=== PATIENT | female | born 1950 | race Caucasian/White ===

== ENCOUNTER 2017-07-30 12:53 | Outpatient (CLI) | payer MEDICARE, OTHER | END 2017-07-30 12:54 | disposition critical access hospital (66) | LOC: EMS 12:53 | PROVIDERS: ATTEND Surgery | DX: R07.9 Chest pain, unspecified (principal); M54.9 Dorsalgia, unspecified; M25.512 Pain in left shoulder | CPT/HCPCS: A0425; A0427 ==

== ENCOUNTER 2017-07-30 13:18 | Emergency (ER) | payer MEDICARE, OTHER ==
[2017-07-30 13:52] LABS: BASOPHILS # (AUTO) 0.1 10^3/uL (0.0-0.1); BASOPHILS % (AUTO) 1.2 %; EOSINOPHILS # (AUTO) 0.2 10^3/uL (0.0-0.7); EOSINOPHILS % (AUTO) 3.2 %; HGB - HEMOGLOBIN 14.3 g/dL (12.0-16.0); LYMPHOCYTES # (AUTO) 1.7 10^3/uL (1.5-3.5); LYMPHOCYTES % (AUTO) 28.3 %; MEAN CORPUSCULAR HEMOGLOBIN 28.5 pg (27.0-31.0); MEAN CORPUSCULAR HGB CONC 34.5 g/dL (32.0-36.0); MEAN CORPUSCULAR VOLUME 82.5 fL (81.0-99.0); MEAN PLATELET VOLUME 7.7 fL (7.9-10.8); MONOCYTES # (AUTO) 0.4 10^3/uL (0.0-1.0); NEUTROPHILS # (AUTO) 3.6 10^3/uL (1.5-6.6); NEUTROPHILS % (AUTO) 60.3 %; PLT - PLATELET COUNT 256 10^3/uL (130-450); RED BLOOD COUNT 5.02 10^6/uL (4.20-5.40); RED CELL DISTRIBUTION WIDTH 14.4 % (12.0-15.0); WHITE BLOOD COUNT 5.9 x10^3/uL (4.8-10.8)
[2017-07-30 13:57] LABS: ALBUMIN 4.1 g/dL (3.2-5.5); ALBUMIN/GLOBULIN RATIO 1.5 (1.0-2.2); BILIRUBIN,TOTAL 0.9 mg/dL (0.2-1.0); CALCIUM 8.6 mg/dL (8.5-10.3); CREATININE 0.6 mg/dL (0.4-1.0); TOTAL PROTEIN 6.9 g/dL (6.7-8.2)
--- NOTE | 2017-07-30 14:13 | ED Physician Documentation ---
PD HPI CHEST PAIN - Stated complaint Stated Complaint: CP - Chief complaint Chief Complaint: Cardiac - History obtained from History obtained from: Patient, EMS - History of Present Illness Timing - onset: How many days ago (5) Timing - onset during: Light activity Timing - duration: Days (5) Timing - details: Gradual onset, Still present, Waxing and waning Quality: Tightness, Sharp Location: Right jaw, Upper back Radiation: Jaw, Neck, Back Improved by: Nitro Associated symptoms: Diaphoresis, Nausea, Feeling faint / dizzy, General Weakness Similar symptoms before: Diagnosis (angina S/P failed stent and 1 vessle CABG.) Recently seen: Not recently seen - Additional information Additional information: 67-year-old female with a history of coronary artery disease who is status post failed stent and one-vessel CABG has developed symptoms of dizziness lightheadedness left upper back pain right jaw pain over the past 5 days and this has waxed and waned. She took some of her nitro and this did not seem to help much when she took the nitro given to her in the ambulance she had sequential relief of her pain. She has had some diaphoresis, light headedness and shortness of breath for the past 5 days as well. 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 Review of Systems Constitutional: denies: Fever Eyes: denies: Decreased vision Ears: denies: Ear pain Nose: denies: Congestion Throat: denies: Dental pain / toothache, Sore throat Cardiac: reports: Chest pain / pressure. denies: Palpitations, Pedal edema, Calf pain Respiratory: reports: Dyspnea. denies: Cough, Wheezing GI: denies: Abdominal Pain, Nausea, Vomiting : denies: Dysuria, Frequency Skin: denies: Rash Musculoskeletal: reports: Neck pain, Back pain. denies: Extremity pain PD PAST MEDICAL HISTORY - Present Medications Home Medications: Ambulatory Orders Medication Instructions Recorded Confirmed Aspirin 81 mg PO TID 07/30/17 07/30/17 Atorvastatin [Lipitor] 10 mg ORAL TID 07/30/17 07/30/17 Carvedilol 3.125 mg PO 07/30/17 Cholecalciferol (Vitamin D3) 50,000 unit PO 07/30/17 [Vitamin D] Escitalopram [Lexapro] 20 mg PO DAILY 07/30/17 07/30/17 Exenatide Microspheres [Bydureon] 2 mg SQ 07/30/17 Furosemide 40 mg PO TID 07/30/17 07/30/17 Losartan [Cozaar] 50 mg PO DAILY 07/30/17 07/30/17 Mybetrig 25 mg ORAL TID 07/30/17 Nitroglycerin [Nitrostat] 0.4 mg SL Q5MIN PRN 07/30/17 07/30/17 - Allergies Allergies/Adverse Reactions: Allergies Allergy/AdvReac Type Severity Reaction Status Date / Time adhesive Allergy Rash Verified 07/30/17 14:05 morphine Allergy Emesis Verified 07/30/17 13:25 Penicillins Allergy Rash Verified 07/30/17 14:10 PD ED PE NORMAL - Vitals Vital signs reviewed: Yes (hypertensive ) - General General: Alert and oriented X 3, No acute distress, Well developed/nourished - HEENT HEENT: Atraumatic, PERRL, EOMI - Neck Neck: Supple, no meningeal sign, No bony TTP - Cardiac Cardiac: RRR, Other (2/6 holosystolic murmer at LSB) - Respiratory Respiratory: No respiratory distress, Clear bilaterally - Abdomen Abdomen: Soft, Non tender - Back Back: No CVA TTP, No spinal TTP - Derm Derm: Normal color, Warm and dry, No rash - Extremities Extremities: No deformity, No edema - Neuro Neuro: No motor deficit, No sensory deficit Eye Opening: Spontaneous Motor: Obeys Commands Verbal: Oriented GCS Score: 15 - Psych Psych: Normal mood, Normal affect Results - Vitals Vitals: Vital Signs - 24 hr 07/30/17 07/30/17 07/30/17 13:20 14:13 14:38 Temperature 36.7 C Heart Rate 74 72 70 Respiratory 18 18 18 Rate Blood Pressure 194/88 H 164/93 H 148/89 H Blood Pressure 164/93 H [Left] O2 Saturation 96 95 95 07/30/17 07/30/17 07/30/17 15:05 16:37 17:04 Temperature 36.6 C Heart Rate 68 70 75 Respiratory 18 18 13 Rate Blood Pressure 148/73 H 170/79 H 160/92 H Blood Pressure [Left] O2 Saturation 96 96 100 Oxygen O2 Source Room air - EKG (time done) 1326 Rate: Rate (enter#) (72) Rhythm: NSR Ischemia: Non specific changes Other comments: Other comments (early transition. ) Compare to prior EKG: Old EKG unavailable Computer interpretation: Agree with computer - Labs Labs: Laboratory Tests 07/30/17 07/30/17 07/30/17 13:39 13:39 13:39 WBC 5.9 RBC 5.02 Hgb 14.3 Hct 41.4 MCV 82.5 MCH 28.5 MCHC 34.5 RDW 14.4 Plt Count 256 MPV 7.7 L Neut # (Auto) 3.6 Lymph # (Auto) 1.7 Geary # (Auto) 0.4 Eos # (Auto) 0.2 Baso # (Auto) 0.1 Absolute Nucleated RBC 0.00 Nucleated RBC % 0.0 Sodium 136 Potassium 3.9 Chloride 103 Carbon Dioxide 26 Anion Gap 7.0 BUN 17 Creatinine 0.6 Estimated GFR (MDRD) 100 Glucose 147 H Calcium 8.6 Total Bilirubin 0.9 AST 18 ALT 19 Alkaline Phosphatase 72 Troponin I < 0.04 Total Protein 6.9 Albumin 4.1 Globulin 2.8 Albumin/Globulin Ratio 1.5 Lipase 59 H Urine Color Urine Clarity Urine pH Ur Specific [place] Urine Protein Urine Glucose (UA) Urine Ketones Urine Occult Blood Urine Nitrite Urine Bilirubin Urine Urobilinogen Ur Leukocyte Esterase Ur Microscopic Review Urine Culture Comments 07/30/17 07/30/17 15:20 16:30 WBC RBC Hgb Hct MCV MCH MCHC RDW Plt Count MPV Neut # (Auto) Lymph # (Auto) Geary # (Auto) Eos # (Auto) Baso # (Auto) Absolute Nucleated RBC Nucleated RBC % Sodium Potassium Chloride Carbon Dioxide Anion Gap BUN Creatinine Estimated GFR (MDRD) Glucose Calcium Total Bilirubin AST ALT Alkaline Phosphatase Troponin I < 0.04 Total Protein Albumin Globulin Albumin/Globulin Ratio Lipase Urine Color YELLOW Urine Clarity CLEAR Urine pH 5.5 Ur Specific [place] >=1.030 H Urine Protein NEGATIVE Urine Glucose (UA) NEGATIVE Urine Ketones NEGATIVE Urine Occult Blood TRACE-LYSE Urine Nitrite NEGATIVE Urine Bilirubin NEGATIVE Urine Urobilinogen 0.2 (NORMAL) Ur Leukocyte Esterase NEGATIVE Ur Microscopic Review NOT INDICATED Urine Culture Comments NOT INDICATED - Rads (name of study) 2 veiw chest Radiology: Prelim report reviewed (Impression: 1. Chronic lung disease. 2 Prior sternotomy.), EMP read indepedently, See rad report Procedures - IVC sono (time) 1410 Bedside IVC sono: IVC measures (cm) (1.94), IVC collapsed c insp (cm) (1.04), Euvolemia PD MEDICAL DECISION MAKING - ED course Complexity details: reviewed results, re-evaluated patient, considered differential, d/w patient ED course: 67-year-old female with a five-day history of pain in the left rhomboid area radiation of pain down the left arm and pain in the right jaw associated with diaphoresis and dyspnea on exertion has had improvement in her pain with the use of nitroglycerin and this has been repeated twice here in the emergency department and once in the ambulance. She did arrive to the emergency department hypertensive she has a history of coronary disease from a single coronary bypass graft and today she has negative troponin 2 despite hours of pain. Departure - Departure Disposition: ED Place in Observation Clinical Impression: Atypical chest pain
--- NOTE | 2017-07-30 14:15 | XRAY Preliminary Report ---
Exam: XR CHEST 2 VIEW X-RAY IMPRESSION: 1. Chronic lung disease. 2. Prior sternotomy. [facility] SITE ID: [id number]
--- NOTE | 2017-07-30 14:18 | XRAY Report ---
EXAM: CHEST RADIOGRAPHY EXAM DATE: 07/30/2017 02:01 PM. CLINICAL HISTORY: Chest pain for one week, increasing over the last 2 days. COMPARISON: None. TECHNIQUE: 2 views. FINDINGS: Lungs/Pleura: No focal opacities evident. No pleural effusion. No pneumothorax. Overexpanded. Mediastinum: Heart is normal caliber. Prior CABG. No tracheal shift. Other: None. IMPRESSION: 1. Chronic lung disease. 2. Prior sternotomy. [facility] Referring Provider Line: [phone] SITE ID: [id number]
[2017-07-30] MEDS ORDERED: NITROGLYCERIN SL 0.4 MG TABLET SL STA ×3 (14:24→19:20)
[2017-07-30 15:36] LABS: BILIRUBIN,URINE NEGATIVE (NEGATIVE); GLUCOSE, URINE (UA) NEGATIVE (NEGATIVE); KETONES,URINE (UA) NEGATIVE (NEGATIVE); LEUKOCYTE ESTERASE, URINE NEGATIVE (NEGATIVE); NITRITE,URINE NEGATIVE (NEGATIVE); OCCULT BLOOD,URINE TRACE-LYSE (NEGATIVE); PH,URINE 5.5 PH (5.0-7.5); PROTEIN,URINE NEGATIVE (NEGATIVE); UROBILINOGEN,URINE 0.2 (NORMAL) E.U./dL (NORMAL)
[2017-07-30 15:38] LABS: CLARITY,URINE CLEAR (CLEAR)
[2017-07-30] MEDS ORDERED: NITROGLYCERIN 2% PASTE TOP STA (19:20)
[2017-07-30 21:55] VITALS: BP 136/68
== END 2017-07-30 22:12 | disposition short-term general hospital (02) ==
LOC: ED 13:18
DX: R07.89 Other chest pain (principal); R94.31 Abnormal electrocardiogram [ECG] [EKG]; E86.0 Dehydration; M79.602 Pain in left arm; R68.84 Jaw pain; I25.10 Atherosclerotic heart disease of native coronary artery without angina pectoris; Z95.1 Presence of aortocoronary bypass graft; Z79.82 Long term (current) use of aspirin
CPT/HCPCS: 36415; 71046; 80053; 81003; 83690; 84484; 85025; 93005; 99284; 99285; A9270; 81001; 87086

== ENCOUNTER 2017-07-30 22:16 | Outpatient (CLI) | payer MEDICARE, OTHER | END 2017-07-30 22:17 | disposition short-term general hospital (02) | LOC: EMS 22:16 | PROVIDERS: ATTEND Surgery | DX: R07.9 Chest pain, unspecified (principal) | CPT/HCPCS: A0425; A0426 ==